=== PATIENT | female | born 1980 | race Caucasian/White ===

== ENCOUNTER 2022-08-17 10:10 | Outpatient (CLI) | payer OTHER | END 2022-08-17 10:20 | disposition home or self-care (01) | LOC: RX STUDY 10:10 | PROVIDERS: ATTEND Student in an Organized Health Care Education/Training Program | DX: N84.8 Polyp of other parts of female genital tract (principal); R10.2 Pelvic and perineal pain ==

== ENCOUNTER 2022-11-06 14:58 | Outpatient (CLI) | payer OTHER | END 2022-11-06 15:00 | disposition home or self-care (01) | LOC: MAMO-SONO 14:58 | PROVIDERS: ATTEND Student in an Organized Health Care Education/Training Program | DX: N60.11 Diffuse cystic mastopathy of right breast (principal); N60.12 Diffuse cystic mastopathy of left breast; Z12.31 Encounter for screening mammogram for malignant neoplasm of breast ==